=== PATIENT | female | born 1990 | race Caucasian/White ===

== ENCOUNTER 2018-10-10 12:38 | Emergency (ER) | payer MEDICAID ==
--- NOTE | 2018-10-10 13:29 | ED Physician Chart ---
ED Chief Complaint/HPI - Patient Information Date Seen:: 10/10/18 Time Seen:: 13:05 Chief Complaint:: left foot pain History of Present Illness:: 28 yo F presents to ER with c/o left foot pain and swelling x2 months, states injured foot while running Allergies:: Allergies Allergy/AdvReac Type Severity Reaction Status Date / Time No Known Allergies Allergy Verified 10/10/18 13:09 Vitals:: Vital Signs - 8 hr 10/10/18 13:05 Temp 97.4 F HR 77 RR 16 BP 117/76 O2 Sat % 100 Historian:: Patient Review:: Nurse's Note Reviewed ED Review of Systems - Review of Systems General/Constitutional: No fever, No chills, No weight loss, No weakness, No diaphoresis, No edema, No loss of appetite Skin: No skin lesions, No rash, No bruising Head: No headache, No light-headedness Eyes: No loss of vision, No pain, No diplopia ENT: No earache, No nasal drainage, No sore throat, No tinnitus Neck: No neck pain, No swelling, No thyromegaly, No stiffness, No mass noted Cardio Vascular: No chest pain, No palpitations, No PND, No orthopnea, No edema Pulmonary: No SOB, No cough, No sputum, No wheezing GI: No nausea, No vomiting, No diarrhea, No pain, No melena, No hematochezia, No constipation, No hematemesis G/U: No dysuria, No frequency, No hematuria Musculoskeletal: Bone or joint pain Endocrine: No polyuria, No polydipsia Psychiatric: No prior psych history, No depression, No anxiety, No suicidal ideation Hematopoietic: No bruising, No lymphadenopathy Allergic/Immuno: No urticaria, No angioedema Neurological: No syncope, No focal symptoms, No weakness, No paresthesia, No headache, No seizure, No dizziness, No confusion, No vertigo ED Past Medical History - Past Medical History Obtainable: Yes Past Medical History: No significant medical hx ED Physical Exam - Physical Examination General/Constitutional: Awake, Well-developed, well-nourished, Alert, No distress, GCS 15, Non-toxic appearing, Ambulatory Head: Atraumatic Eyes: Lids, conjuctiva normal, PERRL, EOMI Other Skin comments:: left foot bruising. left foot pain and swelling with a little bit of bruising by the base of the left 5th metatarsal. ENMT: External ears, nose nl Neck: Nontender, No nuchal rigidity, No stridor Respiratory: Nl effort/Exclusion, Clear to Auscultation, No Wheeze/Rhonchi/Rales Cardio Vascular: RRR, No murmur, gallop, rubs, NL S1 S2 Other Extremities comments:: left foot pain and swelling with a little bit of bruising by the base of the left 5th metatarsal. Neuro/Psych: Alert/oriented, Normal sensory exam Other Neuro/Psych comments:: antalgic gait Misc: Normal back, No paraspinal tenderness ED Assessment - Assessment General Assessment: cuboid chip fracture based on my reading of the left foot xray. ED Septic Shock - . Is Septic Shock (SBP<90, OR Lactate>4 mmol\L) present?: No - <6hrs of presentation: Vital Signs: Vital Signs - 8 hr 10/10/18 13:05 Temp 97.4 F HR 77 RR 16 BP 117/76 O2 Sat % 100 ED Reassessment (Disposition) - Reassessment Reassessment Condition:: Improved - Diagnosis Diagnosis:: Closed left cuboid chip fracture - Aftercare/Follow up Instructions Aftercare/Follow-Up Instructions:: Refer to Discharge Instructions Notes:: non weight bearing with crutches. Follow up with PCP for referral to an orthopedist. Medication Prescribed:: Tylenol # 3 with codeine. CURES REPORT NEGATIVE. - Patient Disposition Discharge/Transfer:: Home Condition at Disposition:: Stable, Improved
--- NOTE | 2018-10-11 08:12 | Diagnostic Imaging Report ---
Left foot (3 views) HISTORY: Pain Demonstrates deformity involving the medial aspect of the navicular bone. Relatively smooth bony margins. No significant soft tissue swelling. Findings may be associated with an old fracture. Clinical correlation is needed. Joint spaces appear normal. IMPRESSION: 1. Deformity involving the medial aspect of navicular bone which may be associated with changes of an old fracture. Clinical correlation is needed. In the presence of recent trauma and persistent symptoms, a repeat radiograph in 5-7 days may be helpful for detection of a subtle or occult fracture.
== END 2018-10-10 16:05 | disposition home or self-care (01) ==
LOC: ER 12:38
DX: S92.212A Displaced fracture of cuboid bone of left foot, initial encounter for closed fracture (principal); X58.XXXA Exposure to other specified factors, initial encounter; Y93.02 Activity, running; Y92.89 Other specified places as the place of occurrence of the external cause; Y99.8 Other external cause status
CPT/HCPCS: 73630-TC-LT; 81025-TC; Z7502; Z7610